=== PATIENT | male | born 1960 | race Hispanic/Latino ===

== ENCOUNTER → 2018-06-02 15:57 | Outpatient (CLI) | payer OTHER, SELFPAY ==
[2018-06-02 16:24] LABS: Add Manual Diff / Slide Review NO; Basophils Absolute Auto 0 /uL (0-100); Basophils Percent Auto 1.1 % (0-2); Eosinophils Absolute Auto 100 /uL (0-450); Eosinophils Percent Auto 2.2 % (2-4); Hematocrit 32.3 % (41-53); Hemoglobin 9.7 g/dL (13.5-17.5); Lymphocytes Absolute Auto 1500 /uL (1100-4500); Lymphocytes Percent Auto 35.1 % (25-40); Mean Corpuscular HGB Conc 30.2 % (30-36); Mean Corpuscular Hemoglobin 22.2 PG (26-34); Mean Corpuscular Volume 73.4 fL (80-100); Monocytes Absolute Auto 400 /uL (0-900); Monocytes Percent Auto 8.3 % (3-14); Neutrophils Absolute Auto 2300 /uL (1500-7000); Neutrophils Percent Auto 53.3 % (50-75); Platelet Count 499 X10^3/uL (150-400); Red Blood Cell Count 4.39 X10^6/uL (4.5-5.9); Red Cell Distribution Width 28.8 % (11.6-14.8); White Blood Cell Count 4.4 X10^3/uL (4.5-11.0)
[2018-06-02 16:43] LABS: Alanine Aminotransferase 22 IU/L (21-72); Albumin 4.7 g/dL (3.5-5.0); Albumin Globulin Ratio 1.7 (1.0-2.8); Alkaline Phosphatase 75 U/L (38-126); Aspartate Aminotransferase 20 IU/L (17-59); BUN Creatinine Ratio 22.9 (6-22); Bilirubin Total 0.3 mg/dL (0.2-1.3); Blood Urea Nitrogen 16 mg/dL (9-20); Carbon Dioxide 26 mmol/L (22-32); Chloride 103 mmol/L (98-107); Estimated Glomerular Filt Rate > 60.0 mL/min (>60); Globulin 2.7 g/dL (1.7-4.1); Glucose 87 mg/dL (70-100); HEMOLYSIS < 15 (0-50); Potassium 3.8 mmol/L (3.4-5.1); Sodium 139 mmol/L (137-145); Total Protein 7.4 g/dL (6.3-8.2)
[2018-06-02 16:58] LABS: HEMOLYSIS < 15 (0-50); Iron 246 ug/dL (49-181)
[2018-06-02 17:07] LABS: Anisocytosis 2+; Microcytosis 2+
[2018-06-02 17:08] LABS: Target Cells 1+
[2018-06-02 17:09] LABS: Percent Iron Saturation 56 % (20-50); Total Iron Binding Capacity 443 ug/dL (261-462); Transferrin 407 mg/dL (206-381)
[2018-06-02 17:19] LABS: Ferritin 76.6 ng/mL (17.9-464)
== END ==
PROVIDERS: PCP Nurse Practitioner Family; Visit Provider Internal Medicine Hematology & Oncology
DX: D50.9 Iron deficiency anemia, unspecified (principal)
CPT/HCPCS: 36415; 80053; 82728; 83540; 83550; 85025

== ENCOUNTER → 2018-08-04 15:51 | Outpatient (CLI) | payer OTHER, SELFPAY ==
[2018-08-04 16:24] LABS: Add Manual Diff / Slide Review NO; Basophils Absolute Auto 0 /uL (0-100); Eosinophils Absolute Auto 0 /uL (0-450); Eosinophils Percent Auto 0.9 % (2-4); Hematocrit 32.2 % (41-53); Hemoglobin 9.9 g/dL (13.5-17.5); Lymphocytes Absolute Auto 1500 /uL (1100-4500); Lymphocytes Percent Auto 30.4 % (25-40); Mean Corpuscular HGB Conc 30.8 % (30-36); Mean Corpuscular Hemoglobin 22.8 PG (26-34); Monocytes Absolute Auto 300 /uL (0-900); Monocytes Percent Auto 6.9 % (3-14); Neutrophils Absolute Auto 3100 /uL (1500-7000); Neutrophils Percent Auto 60.8 % (50-75); Platelet Count 432 X10^3/uL (150-400); Red Blood Cell Count 4.35 X10^6/uL (4.5-5.9); Red Cell Distribution Width 19.3 % (11.6-14.8)
[2018-08-04 16:37] LABS: Iron 23 ug/dL (49-181)
[2018-08-04 16:39] LABS: Alanine Aminotransferase 27 IU/L (21-72); Albumin 4.5 g/dL (3.5-5.0); Albumin Globulin Ratio 1.6 (1.0-2.8); Alkaline Phosphatase 82 U/L (38-126); Aspartate Aminotransferase 22 IU/L (17-59); BUN Creatinine Ratio 27.5 (6-22); Bilirubin Total 0.3 mg/dL (0.2-1.3); Blood Urea Nitrogen 22 mg/dL (9-20); Calcium 9.3 mg/dL (8.4-10.2); Carbon Dioxide 26 mmol/L (22-32); Chloride 101 mmol/L (98-107); Estimated Glomerular Filt Rate > 60.0 mL/min (>60); Globulin 2.8 g/dL (1.7-4.1); Glucose 116 mg/dL (70-100); HEMOLYSIS < 15 (0-50); Potassium 3.3 mmol/L (3.4-5.1); Sodium 138 mmol/L (137-145); Total Protein 7.3 g/dL (6.3-8.2)
[2018-08-04 17:14] LABS: Ferritin 8.1 ng/mL (17.9-464)
[2018-08-04 17:47] LABS: HEMOLYSIS < 15 (0-50); Percent Iron Saturation 5 % (20-50); Total Iron Binding Capacity 480 ug/dL (261-462); Transferrin 393 mg/dL (206-381)
== END ==
PROVIDERS: Family Provider Internal Medicine Hematology & Oncology; PCP Nurse Practitioner Family; Visit Provider Nurse Practitioner Family
DX: E61.1 Iron deficiency (principal)
CPT/HCPCS: 36415; 80053; 82728; 83540; 83550; 85025

== ENCOUNTER → 2018-12-11 08:52 | Outpatient (CLI) | payer OTHER, SELFPAY ==
--- NOTE | 2018-12-11 08:55 | DI.RAD.S_ITS ---
PROCEDURE: XR RIBS LT MIN 3V W CXR1V INDICATIONS: Fall, rib pain, trouble breathing TECHNIQUE: 2 views of the left ribs were acquired, along with a single view chest. COMPARISON: None. FINDINGS: Surgical changes and devices: None. Bones and chest wall: Mildly displaced fractures of the left fourth and fifth ribs. No suspicious bony lesions. Overlying soft tissues appear unremarkable. Lungs and pleura: No pleural effusions or pneumothorax. Lungs appear clear. Mediastinum: Mediastinal contours appear normal. Heart size is normal. IMPRESSION: Mildly displaced left fourth and fifth rib fractures Dictated by: Ashlee Mccoy M.D. on 12/11/2018 at 9:15 Approved by: Ashlee Mccoy M.D. on 12/11/2018 at 9:17
== END ==
PROVIDERS: Visit Provider Physician Assistant
DX: S22.31XA Fracture of one rib, right side, initial encounter for closed fracture (principal); S20.219A Contusion of unspecified front wall of thorax, initial encounter; S22.32XA Fracture of one rib, left side, initial encounter for closed fracture; W19.XXXA Unspecified fall, initial encounter
CPT/HCPCS: 71101

== ENCOUNTER → 2018-12-27 15:52 | Outpatient (CLI) | payer OTHER, SELFPAY ==
[2018-12-27 16:14] LABS: Add Manual Diff / Slide Review NO; Basophils Absolute Auto 100 /uL (0-100); Basophils Percent Auto 1.3 % (0-2); Eosinophils Absolute Auto 100 /uL (0-450); Eosinophils Percent Auto 1.2 % (2-4); Hematocrit 28.8 % (41-53); Hemoglobin 8.9 g/dL (13.5-17.5); Lymphocytes Absolute Auto 1100 /uL (1100-4500); Mean Corpuscular HGB Conc 30.9 % (30-36); Mean Corpuscular Hemoglobin 22.2 PG (26-34); Mean Corpuscular Volume 71.8 fL (80-100); Monocytes Absolute Auto 400 /uL (0-900); Monocytes Percent Auto 7.3 % (3-14); Neutrophils Absolute Auto 4100 /uL (1500-7000); Neutrophils Percent Auto 71.2 % (50-75); Platelet Count 428 X10^3/uL (150-400); Red Blood Cell Count 4.02 X10^6/uL (4.5-5.9); Red Cell Distribution Width 18.6 % (11.6-14.8); White Blood Cell Count 5.8 X10^3/uL (4.5-11.0)
[2018-12-27 16:45] LABS: HEMOLYSIS < 15 (0-50); Iron 19 ug/dL (49-181)
[2018-12-27 16:47] LABS: Alanine Aminotransferase 21 IU/L (21-72); Albumin 4.3 g/dL (3.5-5.0); Albumin Globulin Ratio 1.5 (1.0-2.8); Alkaline Phosphatase 88 U/L (38-126); Aspartate Aminotransferase 27 IU/L (17-59); BUN Creatinine Ratio 16.7 (6-22); Bilirubin Total 0.5 mg/dL (0.2-1.3); Blood Urea Nitrogen 20 mg/dL (9-20); Calcium 9.7 mg/dL (8.4-10.2); Carbon Dioxide 25 mmol/L (22-32); Chloride 103 mmol/L (98-107); Estimated Glomerular Filt Rate > 60.0 mL/min (>60); Globulin 2.9 g/dL (1.7-4.1); Glucose 125 mg/dL (70-100); HEMOLYSIS < 15 (0-50); Potassium 4.3 mmol/L (3.4-5.1); Sodium 138 mmol/L (137-145); Total Protein 7.2 g/dL (6.3-8.2)
[2018-12-27 16:55] LABS: Percent Iron Saturation 4 % (20-50); Total Iron Binding Capacity 485 ug/dL (261-462); Transferrin 394 mg/dL (206-381)
== END ==
PROVIDERS: Visit Provider Internal Medicine Hematology & Oncology
DX: D50.9 Iron deficiency anemia, unspecified (principal)
CPT/HCPCS: 36415; 80053; 82728; 83540; 83550; 85025

== ENCOUNTER 2019-03-06 07:23 | Day surgery (SDC) | payer OTHER, SELFPAY ==
--- NOTE | 2019-03-06 | PATH_ITS ---
[facility] Accession Number: [id number] . 01 Material submitted: . colon - COLON POLYP AT 20 CM . 02 Diagnosis: Colon at 20 cm, Polyp: Tubular adenoma. MRV 03/07/2019 1001 Local . 02 Electronically signed: . Fito Wolff MD, PhD, Pathologist NPI- [id number] . 01 Gross description: . COLON POLYP AT 20 CM: Received in formalin is 1 fragment(s) of castro, soft tissue measuring 0.3 x 0.3 x 0.3 cm submitted entirely in 1 cassette(s) /DMC 03/06/2019 1938 Local . 02 Pathologist provided ICD-10: D12.6 . 02 CPT . 020612 Performed at: 01 [facility] [address] [id number] MD Hung Maravilla MD Phone: [phone] Performed at: 02 [facility] [address] [place], [place] [id number] MD Wendi Skaggs MD Phone: [phone]
[2019-03-06 07:45] VITALS: BP 192/104; PULSE 58; RESP 15; TEMP 36.7; O2SAT 98; BMI 26.1
--- NOTE | 2019-03-06 08:46 | PM.HP.1 ---
History of Present Illness History of Present Illness Date Patient Seen: 03/06/19 Time Patient Seen: 08:46 Chief complaint: [id number] Narrative: Patient presents for colorectal screening. They had a prior colonoscopy 5 yeras ago that was notable for an adenomatous polyp. On further history denies any recent gastrointestinal symptoms. No nausea, vomiting, abdominal pain, loss of appetite, unexplained weight loss, change in bowel habits, diarrhea, constipation, melena, hematochezia, or bright red blood per rectum. No family history of colon cancer. He has had a prior sigmoid resection for diverticulitis. Patient History Medical History Acid reflux (Acute) Arthritis (Acute) Asthma (Acute) Chronic anemia (Acute) COPD (chronic obstructive pulmonary disease) (Acute) Cough (Acute) Depression (Acute) Diverticulitis (Acute) Diverticulosis (Acute) Elevated cholesterol (Acute) Hypertension (Acute) Iron deficiency (Acute) Urinary frequency (Acute) Surgical History History of appendectomy (Acute) History of arthroscopic surgery of shoulder (Acute) History of colon resection (Acute) History of colonoscopy (Acute) Family & Social History Family History Brother Diabetes mellitus Social History: household members none Tobacco & Substance use: Smoking Status Former smoker alcohol intake current Meds Home Medications and Allergies Home Medications Medication Instructions Recorded Confirmed Type lisinopril-hydrochlorothiazide 1 tab PO BID #0 07/04/17 03/06/19 History pramipexole [Mirapex] 0.25 mg PO QPM PRN #0 07/04/17 03/06/19 History ferrous sulfate 1 tab PO Q OTHER DAY 05/11/18 02/12/19 History sildenafil (antihypertensive) 20 mg PO PRN PRN 05/11/18 03/06/19 History quetiapine [Seroquel] 25 mg PO PRN PRN 09/21/18 03/06/19 History acetaminophen 650 mg PO Q4-6H PRN 03/06/19 03/06/19 History Allergies Allergy/AdvReac Type Severity Reaction Status Date / Time morphine AdvReac Mild N&V Verified 03/06/19 08:09 Review of Systems Review of Systems ROS Unobtainable: All systems reviewed & are unremarkable except as noted in HPI and below Exam Vital Signs (past 8 hours): - 03/06/19 07:45 Temperature 98.0 F Pulse Rate 58 L Respiratory Rate 15 Blood Pressure 192/104 H Pulse Oximetry 98 Oxygen Delivery Method Room Air Narrative Exam Narrative: General-no acute distress, well nourished HEENT-moist mucous membranes, no scleral icterus Neck-supple, no lymphadenopathy Chest- non labored respirations, clear to auscultation bilaterally Cardiac-regular rate no peripheral edema Abdomen-soft, nontender, non distended Extremities-warm, well perfused Neurological-alert and oriented, no focal deficits Assessment & Plan Assessment and plan (1) Screening for colon cancer: Current visit: Yes Status: Acute Assessment & Plan narrative: The patient requires colorectal screening and colonoscopy is recommended. Technical details were discussed. Risks, benefits, alternatives explained. Risks including but not limited to myocardial infarction, aspiration, bleeding, pain, missed lesion, incomplete examination, need for further radiographic studies, colonic perforation, and need for major abdominal surgery were discussed. All questions were answered to their satisfaction, and they are in agreement with this plan.
[2019-03-06] MEDS: fentaNYL 250 MCG/5 ML INJ IV (09:18)
--- NOTE | 2019-03-06 09:18 | PM.OP.ENDO ---
Operative Date/Time/Diagnoses Date of procedure: 03/06/19 Time of procedure: 09:18 Pre-op diagnosis: Anemia History of tubular adenoma Post-op diagnosis: same Procedure & Clinicians Study performed: Colonoscopy Same procedure as scheduled: Yes Indications: 58-year-old man with new anemia and history of tubular adenoma, last colonoscopy 5 years ago presents for diagnostic and screening colonoscopy Surgeon: Humberto Velez Procedure Notes SCOAP/Timeout: Performed Procedure in detail: Patient placed in left lateral decubitus position. Time out was performed. Procedural sedation was administered with Versed and Fentanyl. A rectal exam demonstrated no external hemorrhoids no internal masses. Colonoscopy scope was placed into the rectum and advanced through the colon to the cecum. The ileocecal valve was identified. The scope was then slowly withdrawn examining colon thoroughly in all directions. The colonoscopy was notable for the following 1. Bell diverticulosis 2. 1 cm adenoma in the rectum 20 cm from anal verge resected with cold snare. 3. Grade 1 internal hemorrhoids. Scope withdrawal time: 15 Sedation minutes: 25 Findings: polyp Specimen(s): other (polyp from 20 cm from verge) Complications: none Impression: Polyp Post-procedure Recommendations: Colonscopy in 5 years Disposition: same day surgery
[2019-03-06] MEDS: MIDAZOLAM 5 MG/5 ML VIAL IV (09:19)
[2019-03-06 09:22] VITALS: BP 140/89; PULSE 78; RESP 18; TEMP 36.8; O2SAT 98
[2019-03-06 09:31] VITALS: BP 154/94; PULSE 73; RESP 17; O2SAT 97
--- NOTE | 2019-03-06 09:36 | SUR.PHASEI ---
pt to PACU awake, oriented. HOB elevated, juice given. Requested that lab draw tests as ordered by his PCP while he is here -- done. Report given. Stable and oriented
[2019-03-06 09:53] VITALS: BP 167/97; PULSE 55; RESP 16; TEMP 36.6; O2SAT 98
[2019-03-06 09:55] LABS: Add Manual Diff / Slide Review NO; Basophils Absolute Auto 0 /uL (0-100); Basophils Percent Auto 1.2 % (0-2); Eosinophils Absolute Auto 100 /uL (0-450); Eosinophils Percent Auto 2.4 % (2-4); Hematocrit 34.1 % (41-53); Hemoglobin 10.9 g/dL (13.5-17.5); Lymphocytes Absolute Auto 1000 /uL (1100-4500); Lymphocytes Percent Auto 29.7 % (25-40); Mean Corpuscular HGB Conc 31.9 % (30-36); Mean Corpuscular Hemoglobin 24.7 PG (26-34); Mean Corpuscular Volume 77.5 fL (80-100); Monocytes Absolute Auto 300 /uL (0-900); Monocytes Percent Auto 9.9 % (3-14); Neutrophils Absolute Auto 1900 /uL (1500-7000); Neutrophils Percent Auto 56.8 % (50-75); Platelet Count 253 X10^3/uL (150-400); Red Cell Distribution Width 22.4 % (11.6-14.8); White Blood Cell Count 3.4 X10^3/uL (4.5-11.0)
[2019-03-06 10:13] LABS: Anisocytosis 2+; Poikilocytosis 1+
[2019-03-06 10:18] LABS: HEMOLYSIS < 15 (0-50); Iron 28 ug/dL (49-181)
[2019-03-06 10:19] LABS: Alanine Aminotransferase 60 IU/L (21-72); Albumin 3.5 g/dL (3.5-5.0); Albumin Globulin Ratio 1.3 (1.0-2.8); Alkaline Phosphatase 69 U/L (38-126); Aspartate Aminotransferase 64 IU/L (17-59); BUN Creatinine Ratio 12.5 (6-22); Bilirubin Total 0.6 mg/dL (0.2-1.3); Blood Urea Nitrogen 10 mg/dL (9-20); Calcium 9.3 mg/dL (8.4-10.2); Carbon Dioxide 29 mmol/L (22-32); Chloride 98 mmol/L (98-107); Estimated Glomerular Filt Rate > 60.0 mL/min (>60); Globulin 2.6 g/dL (1.7-4.1); Glucose 146 mg/dL (70-100); HEMOLYSIS < 15 (0-50); Potassium 4.2 mmol/L (3.4-5.1); Sodium 134 mmol/L (137-145); Total Protein 6.1 g/dL (6.3-8.2)
[2019-03-06 10:29] LABS: Percent Iron Saturation 7 % (20-50); Total Iron Binding Capacity 375 ug/dL (261-462); Transferrin 314 mg/dL (206-381)
[2019-03-06 10:57] LABS: Ferritin 27.5 ng/mL (17.9-464)
== END 2019-03-06 09:58 | disposition home or self-care (01) ==
PROVIDERS: Internal Medicine Hematology & Oncology; Visit Provider Surgery
PROC: 0DJD8ZZ Inspection of Lower Intestinal Tract, Via Natural or Artificial Opening Endoscopic (ICD-10-PCS; CPT 45378; principal; 2019-03-06 09:15)
DX: D50.9 Iron deficiency anemia, unspecified (principal); K64.0 First degree hemorrhoids; K57.30 Diverticulosis of large intestine without perforation or abscess without bleeding; D12.6 Benign neoplasm of colon, unspecified
CPT/HCPCS: 45380; 36415; 80053; 82728; 83540; 83550; 85025; 99152; J2250; J3010

== ENCOUNTER 2019-07-26 16:30 | Emergency (ER) | payer OTHER, MEDICAID, SELFPAY ==
[2019-07-26 16:38] VITALS: BP 162/77; PULSE 83; RESP 14; TEMP 36.8; O2SAT 98; BMI 27.8
--- NOTE | 2019-07-26 16:50 | DI.US.S_ITS ---
PROCEDURE: US PERIPH VENOUS UP EXTREM LT INDICATIONS: PAIN, SWELLING L ARM. SENT FROM ONC TO R/O DVT IN LUE TECHNIQUE: Real-time imaging, as well as color and pulse Doppler interrogation, was performed of the left upper extremity deep veins from the inferior neck to the antecubital fossa. COMPARISON: None. FINDINGS: The internal jugular vein, visualized portions of the subclavian vein, axillary, and brachial veins are free of intraluminal thrombus. Where physically possible, the veins are normally compressible. Color and pulse Doppler demonstrate normal intraluminal flow, with expected phasicity and pulsatility. Additional scanning of the cephalic and basilic veins of the superficial system demonstrate thrombus within the cephalic vein as well as the basilic vein. IMPRESSION: 1. No deep venous thrombosis. 2. Thrombosis within the superficial system of the cephalic and basilic veins are noted. Dictated by: Claire Scott M.D. on 07/26/2019 at 17:47 Approved by: Claire Scott M.D. on 07/26/2019 at 17:48
--- NOTE | 2019-07-26 17:25 | PC.NURSE ---
pt was at onc clinic receiving iron infusion. in the process of being worked up with a blood cancer states he has received 6+ units of blood over the last few weeks as well as iron infusion. Dr Jimenez is oncologist. appears well. in good color. states L AC has hard vein that has been getting progressively harder over the last few days. denies tenderness. denies tingling or numbness in extremity. skin PWD. US obtained. Awaiting further orders.
--- NOTE | 2019-07-26 18:44 | ED.EXTPRO ---
HPI - Extremity Problem General Chief complaint: Extremity Problem,Nontraumatic Stated complaint: blood clot - sent from oncology Time Seen by Provider: 07/26/19 18:36 Source: patient Mode of arrival: Ambulatory Limitations: no limitations History of Present Illness HPI Narrative: 58-year-old gentleman with a history of hypertension, COPD , asthma, diverticulosis with severe iron deficiency anemia requiring blood transfusions as well as iron transfusions. Presented for a follow-up with his oncologist today and noted prominent fullness in the superficial brachiocephalic vessel on the left side and was sent to the emergency department for further evaluation to see if he had a upper extremity DVT. He notes that the area has been somewhat tender but not swollen, not red and has been full for approximately a month. Related Data Home Medications Medication Instructions Recorded Confirmed lisinopril-hydrochlorothiazide 1 tab PO BID #0 07/04/17 03/15/19 pramipexole [Mirapex] 0.25 mg PO QPM PRN #0 07/04/17 03/15/19 sildenafil (pulm.hypertension) 20 mg PO PRN PRN 05/11/18 03/15/19 quetiapine [Seroquel] 25 mg PO PRN PRN 09/21/18 03/15/19 acetaminophen 650 mg PO Q4-6H PRN 03/06/19 03/15/19 Allergies Allergy/AdvReac Type Severity Reaction Status Date / Time morphine AdvReac Mild N&V Verified 07/26/19 16:41 Review of Systems Review of Systems Narrative: No fever, cough, cold, chills, abdominal pain, nausea, dyspnea, lower extremity edema, rectal bleeding, diarrhea Patient History Medical History Acid reflux (Acute) Arthritis (Acute) Asthma (Acute) Chronic anemia (Acute) COPD (chronic obstructive pulmonary disease) (Acute) Cough (Acute) Depression (Acute) Diverticulitis (Acute) Diverticulosis (Acute) Elevated cholesterol (Acute) Hypertension (Acute) Iron deficiency (Acute) Urinary frequency (Acute) Surgical History History of appendectomy (Acute) History of arthroscopic surgery of shoulder (Acute) History of colon resection (Acute) History of colonoscopy (Acute) Family History Brother Diabetes mellitus Social History household members: none current occupational exposures/hazards: Yes Smoking Status: Former smoker alcohol intake: current (Gin. daily before going to bed) substance use type: former substance user (cocaine in 1979) Smoking Status: Former smoker alcohol intake frequency: holidays/special occasions only Substance Use Type: does not use Exam Narrative Exam Narrative: General: Alert appropriate in no acute distress Respiratory: Able to speak in full sentences, no obvious respiratory distress Skin: No obvious rashes, warm and dry Neurologic: Grossly intact no obvious asymmetries or abnormalities Psych, appropriate insight and affect, cooperative Upper extremity: Firmness in approximately 5 cm of the brachiocephalic and 3 cm at the cephalic veins starting at the antecubital fossa. Nontender, non erythematous, no significant forearm edema and neurovascularly intact Initial Vital Signs Initial Vital Signs: Vital Signs Temperature 98.3 F 07/26/19 16:38 Pulse Rate 83 07/26/19 16:38 Respiratory Rate 14 07/26/19 16:38 Blood Pressure 162/77 H 07/26/19 16:38 Pulse Oximetry 98 07/26/19 16:38 Course Orders Ordered: ED Orders 07/26/19 16:50 [facility] venous up extrem lt Stat Vital Signs Vital signs: Vital Signs - 8 hr 07/26/19 16:38 07/26/19 19:03 Temperature 98.3 F Pulse Rate 83 86 Respiratory Rate 14 Blood Pressure 162/77 H 158/78 H Pulse Oximetry 98 99 MDM - Extremity (Nontraumatic) Imaging Data Upper extremity ultrasound: Radiologist's Impression: IMPRESSION: 1. No deep venous thrombosis. 2. Thrombosis within the superficial system of the cephalic and basilic veins are noted. Dictated by: Claire Scott M.D. on 07/26/2019 at 17:47 MDM Narrative Medical decision making narrative: Superficial thrombophlebitis without evidence of DVT. Supportive care, instructions given, safe for home discharge Discharge Plan Departure Patient Disposition: Home Clinical Impression: Superficial thrombophlebitis Qualifiers: Superficial thrombophlebitis-Involved body area: upper extremity Laterality: left Qualified Code(s): I80.8 - Phlebitis and thrombophlebitis of other sites Discharge Date/Time: 07/26/19 19:04 Instructions: DI for Superficial Thrombophlebitis Activity Restrictions/Additional Instructions: There is a blood clot but it is in the superficial blood vessels of your arm. It does not connect or going to the deeper blood vessels. That means that it is tender can cause some swelling and is annoying but is not life-threatening. This is not the type of blood clot where you will need anticoagulation. Using heat to the area, keeping the arm elevated, using 400 mg of ibuprofen (2 udin-npp-efkrwda pills) and 1 Tylenol every 6 hours can be very helpful in controlling pain. Thank you for coming in today. I hope your arm feels better. Prescriptions: No Action lisinopril-hydrochlorothiazide 20 MG/12.5 MG tablet 1 tab PO BID Qty: 0 RF: 0 pramipexole [Mirapex] 0.25 MG tablet 0.25 mg PO QPM PRN (Reason: RLS) Qty: 0 RF: 0 sildenafil (pulm.hypertension) 20 mg Tablet 20 mg PO PRN PRN (Reason: Sexual Activity) RF: 0 quetiapine [Seroquel] 25 mg Tablet 25 mg PO PRN PRN (Reason: Insomnia) RF: 0 acetaminophen 325 mg Tablet 650 mg PO Q4-6H PRN (Reason: Pain) RF: 0
[2019-07-26 19:03] VITALS: BP 158/78; PULSE 86; O2SAT 99
== END 2019-07-26 19:04 | disposition home or self-care (01) ==
PROVIDERS: Emergency Provider Emergency Medicine; Referring Provider Internal Medicine Hematology & Oncology
DX: I80.8 Phlebitis and thrombophlebitis of other sites (principal); I10 Essential (primary) hypertension; J44.9 Chronic obstructive pulmonary disease, unspecified; K57.90 Diverticulosis of intestine, part unspecified, without perforation or abscess without bleeding; D64.9 Anemia, unspecified
CPT/HCPCS: 93971; 99283

== ENCOUNTER → 2019-12-24 10:51 | Outpatient (CLI) | payer OTHER, MEDICAID, SELFPAY ==
--- NOTE | 2019-12-24 10:53 | DI.US.S_ITS ---
PROCEDURE: US SOFT TISSUE HEAD AND NECK INDICATIONS: LYMPH NODE SWELLING TECHNIQUE: Real-time scanning was performed of the neck region of interest, with image documentation. COMPARISON: None. FINDINGS: Scanning is performed at the areas of palpable abnormality within both sides of the neck. On the right-side, nonenlarged lymph nodes are seen, with the largest measuring 8 x 3 x 6 mm. Normal appearing lymph nodes are seen on the left side of the neck. At the specific areas of clinical concern, normal fatty tissue is seen, without masses. No abnormal vascularity is seen. IMPRESSION: No masses or enlarged lymph nodes are seen. Dictated by: Wilner Sewell M.D. on 12/24/2019 at 11:29 Approved by: Wilner Sewell M.D. on 12/24/2019 at 11:30
== END ==
PROVIDERS: Referring Provider Physician Assistant; Visit Provider Physician Assistant
DX: R59.0 Localized enlarged lymph nodes (principal)
CPT/HCPCS: 76536

== ENCOUNTER → 2020-01-28 14:51 | Outpatient (CLI) | payer OTHER, MEDICAID, SELFPAY ==
[2020-01-30 17:20] LABS: COVID19 Sendout Not Detected (Not Detect)
== END ==
PROVIDERS: Visit Provider Nurse Practitioner
DX: Z11.59 Encounter for screening for other viral diseases (principal)
CPT/HCPCS: 87635

== ENCOUNTER 2020-01-31 12:49 | Day surgery (SDC) | payer OTHER, MEDICAID, SELFPAY ==
--- NOTE | 2020-01-31 | PATH_ITS ---
[facility] Accession Number: [id number] . 01 Material submitted: . colon - TRANSVERSE COLON POLYP . 02 Diagnosis: Transverse Colon, Polyp: Colonic mucosa with focal mucosal hyperplasia. Negative for dysplasia or malignancy. Additional step sections examined. V 02/05/2020 1351 Local . 02 Electronically signed: . Fito Wolff MD, PhD, Pathologist NPI- [id number] . 01 Gross description: . Received in formalin, labeled transverse colon polyp, and consists of a 0.3 x 0.3 x 0.2 cm castro fragment of soft tissue which is entirely submitted in cassette A1. ([id number]) /MRV 02/01/2020 1317 Local . 02 Pathologist provided ICD-10: K63.5 . 02 CPT . 460431 Performed at: 01 [facility] [address] [id number] MD Hung Maravilla MD Phone: [phone] Performed at: 02 [facility] [address] [place], [place] [id number] MD Wendi Skaggs MD Phone: [phone]
[2020-01-31 13:04] VITALS: BP 147/85; PULSE 90; RESP 18; TEMP 36.2; O2SAT 100; BMI 28.6
[2020-01-31] MEDS: LACTATED RINGERS 1,000 ML 200 ML IV (13:27)
--- NOTE | 2020-01-31 15:11 | P.HP_ITS ---
History of Present Illness History of Present Illness Date Patient Seen: 01/31/20 Time Patient Seen: 15:12 Chief complaint: SDC Narrative: This is a 59-year-old man who was referred for a colonoscopy secondary to iron deficiency anemia. He had a colonoscopy 1 year ago that was negative and an upper endoscopy at OSH several months ago that was negative as well. No personal or family history of colon cancer. On further history denies any recent gastrointestinal symptoms. No nausea, vomiting, abdominal pain, loss of appetite, unexplained weight loss, change in bowel habits, diarrhea, constipation, melena, hematochezia, or bright red blood per rectum. Patient History Medical History Acid reflux (Acute) Arthritis (Acute) Asthma (Acute) Chronic anemia (Acute) COPD (chronic obstructive pulmonary disease) (Acute) Cough (Acute) Depression (Acute) Diverticulitis (Acute) Diverticulosis (Acute) Elevated cholesterol (Acute) Hypertension (Acute) Iron deficiency (Acute) Urinary frequency (Acute) Surgical History History of appendectomy (Acute) History of arthroscopic surgery of shoulder (Acute) History of colon resection (Acute) History of colonoscopy (Acute) Family & Social History Family History Brother Diabetes mellitus Social History: household members none Tobacco & Substance use: Smoking Status Former smoker alcohol intake current alcohol intake frequency a few times a week Substance Use Type does not use Meds Home Medications and Allergies Home Medications Medication Instructions Recorded Confirmed Type lisinopril-hydrochlorothiazide 1 tab PO BID #0 07/04/17 01/31/20 History sildenafil (pulm.hypertension) 20 mg PO PRN PRN 05/11/18 01/31/20 History albuterol sulfate 1 inh INHALATION QID PRN 01/31/20 01/31/20 History diphenhydramine HCl [Unisom 25 mg PO BEDTIME PRN 01/31/20 01/31/20 History SleepMelts] Allergies Allergy/AdvReac Type Severity Reaction Status Date / Time morphine AdvReac Mild N&V Verified 01/28/20 15:01 Review of Systems Review of Systems Narrative: A 10 point review of systems is negative except as noted in the HPI Exam Vital Signs (past 8 hours): - 01/31/20 13:04 Temperature 97.1 F L Pulse Rate 90 Respiratory Rate 18 Blood Pressure 147/85 H Pulse Oximetry 100 Oxygen Delivery Method Room Air Narrative Exam Narrative: General-no acute distress, well nourished HEENT-moist mucous membranes, no scleral icterus Neck-supple, no lymphadenopathy Chest- non labored respirations, clear to auscultation bilaterally Cardiac-regular rate no peripheral edema Abdomen-soft, nontender, non distended Extremities-warm, well perfused Neurological-alert and oriented, no focal deficits Assessment & Plan Assessment and plan (1) Screening for colon cancer: Status: Acute Assessment & Plan narrative: The patient requires colorectal screening for unexplained anemia and colonoscopy is recommended. Technical details were discussed. Risks, benefits, alternatives explained. Risks including but not limited to myocardial infarction, aspiration, bleeding, pain, missed lesion, incomplete examination, need for further radiographic studies, colonic per foration, and need for major abdominal surgery were discussed. All questions were answered to their satisfaction, and they are in agreement with this plan.
[2020-01-31] MEDS: fentaNYL 250 MCG/5 ML INJ IV (15:32)
[2020-01-31] MEDS: MIDAZOLAM 5 MG/5 ML VIAL IV (15:33)
--- NOTE | 2020-01-31 15:40 | PM.OP.ENDO ---
Operative Date/Time/Diagnoses Date of procedure: 01/31/20 Time of procedure: 15:41 Pre-op diagnosis: Anemia Post-op diagnosis: same Procedure & Clinicians Study performed: Colonoscopy Same procedure as scheduled: Yes Indications: 59-year-old man with anemia of known origin here for colonoscopy. Surgeon: Humberto Velez Procedure Notes SCOAP/Timeout: Performed Procedure in detail: Patient placed in left lateral recumbent position. Time out was performed. Procedural sedation was administered with Versed and Fentanyl. Examination began with a thorough inspection of the perianal area there was no evidence of fissures, fistulae, external hemorrhoids or cutaneous malignancy. The colonoscopy scope was then placed into the rectum the the lumen was insufflated with air. The scope was carefully advanced forward. In the ascending colon there was a coloenteric anastomosis consistent with his history of right hemicolectomy. The scope was then slowly withdrawn examining colon thoroughly in all directions. In the rectum the rectal columns were identified and retroflexion of the scope was performed for inspection of the distal rectum and anal canal. The colonoscopy was notable for the followin. Quality of the preparation-fair 2. Less than 1 cm benign-appearing polyp in the transverse colon removed with biopsy forceps. Hemostasis observed. 3. Bell diverticulosis Scope withdrawal time: 6 Sedation minutes: 20 Findings: polyp Specimen(s): other (Transverse polyp) Complications: none Impression: Polyp Post-procedure Recommendations: Colonscopy in 5 years and Other recommendation Plan for aftercare: Will refer to Gastroenterology for capsule endoscopy Disposition: same day surgery
[2020-01-31 15:45] VITALS: BP 132/76; PULSE 79; RESP 11; TEMP 36.6; O2SAT 98
[2020-01-31 15:49] VITALS: BP 115/68; PULSE 73; RESP 11; O2SAT 97
[2020-01-31 16:00] VITALS: BP 125/87; PULSE 92; RESP 15; O2SAT 97
[2020-01-31 16:06] VITALS: BP 148/92; PULSE 76; RESP 17; TEMP 36.6; O2SAT 98
[2020-01-31 16:24] VITALS: BP 128/79; PULSE 71; RESP 16; TEMP 36.5; O2SAT 99
--- NOTE | 2020-01-31 16:29 | SUR.PHASEII ---
Pt up and ambulating gait steady, up to br dressed and voiding well. All dc instructions given and pt verbalizes understanding.
--- NOTE | 2020-01-31 16:38 | SUR.PHASEII ---
Pt dcd in stable condition via wc with no c/o
== END 2020-01-31 16:38 | disposition home or self-care (01) ==
PROVIDERS: Referring Provider Surgery; Visit Provider Surgery
PROC: 0DJD8ZZ Inspection of Lower Intestinal Tract, Via Natural or Artificial Opening Endoscopic (ICD-10-PCS; CPT 45378; principal; 2020-01-31 14:30)
DX: D50.9 Iron deficiency anemia, unspecified (principal); J44.9 Chronic obstructive pulmonary disease, unspecified; E78.00 Pure hypercholesterolemia, unspecified; I10 Essential (primary) hypertension; D12.3 Benign neoplasm of transverse colon
CPT/HCPCS: 45380; 99152; J2250; J3010

== ENCOUNTER → 2020-09-04 11:04 | Outpatient (CLI) | payer OTHER, MEDICAID, SELFPAY ==
[2020-09-04] MEDS: COVID-19 VACC #1, MRNA(MOD) 100 MCG/0.5 ML VIAL IM (11:11)
== END ==
PROVIDERS: Visit Provider Internal Medicine
DX: Z23 Encounter for immunization (principal)
CPT/HCPCS: 0011A; 91301

== ENCOUNTER → 2020-10-02 11:03 | Outpatient (CLI) | payer OTHER, MEDICAID, SELFPAY ==
[2020-10-02] MEDS: COVID-19 VACC #2, MRNA(MOD) 100 MCG/0.5 ML VIAL IM (11:09)
== END ==
PROVIDERS: Visit Provider Internal Medicine
DX: Z23 Encounter for immunization (principal)
CPT/HCPCS: 0012A; 91301

== ENCOUNTER → 2021-12-24 15:10 | Outpatient (CLI) | payer MEDICARE, MEDICAID, SELFPAY ==
[2021-12-25 08:33] LABS: PSA Free % 18.9 % (.); PSA, Total 6.2 ng/mL (0.0-4.0)
== END ==
PROVIDERS: PCP Internal Medicine; Referring Provider Internal Medicine; Visit Provider Internal Medicine
DX: R97.20 Elevated prostate specific antigen [PSA] (principal)
CPT/HCPCS: 36415; 84153; 84154

== ENCOUNTER → 2022-04-28 12:53 | Outpatient (CLI) | payer MEDICARE, MEDICAID, SELFPAY ==
[2022-04-28 13:07] LABS: Add Manual Diff / Slide Review NO; Basophils Absolute Auto 100 /uL (0-100); Basophils Percent Auto 1.3 % (0-2); Eosinophils Absolute Auto 100 /uL (0-450); Eosinophils Percent Auto 1.4 % (2-4); Hematocrit 36.8 % (41-53); Lymphocytes Absolute Auto 1200 /uL (1100-4500); Lymphocytes Percent Auto 26.1 % (25-40); Mean Corpuscular HGB Conc 32.7 % (30-36); Mean Corpuscular Volume 79.5 fL (80-100); Monocytes Absolute Auto 300 /uL (0-900); Monocytes Percent Auto 7.1 % (3-14); Neutrophils Absolute Auto 3000 /uL (1500-7000); Neutrophils Percent Auto 64.1 % (50-75); Platelet Count 507 X10^3/uL (150-400); Red Blood Cell Count 4.63 X10^6/uL (4.5-5.9); Red Cell Distribution Width 17.9 % (11.6-14.8); White Blood Cell Count 4.7 X10^3/uL (4.5-11.0)
[2022-04-28 13:22] LABS: Alanine Aminotransferase 22 IU/L (<50); Albumin 4.5 g/dL (3.5-5.0); Albumin Globulin Ratio 1.3 (1.0-2.8); Alkaline Phosphatase 84 U/L (38-126); Aspartate Aminotransferase 27 IU/L (17-59); BUN Creatinine Ratio 15.7 (6-22); Bilirubin Total 0.4 mg/dL (0.2-1.3); Blood Urea Nitrogen 13 mg/dL (9-20); Calcium 9.5 mg/dL (8.4-10.2); Carbon Dioxide 27 mmol/L (22-32); Chloride 97 mmol/L (98-107); Estimated Glomerular Filt Rate > 60 mL/min (>60); Globulin 3.5 g/dL (1.7-4.1); Glucose 140 mg/dL (80-110); HEMOLYSIS 34 (0-50); Potassium 4.2 mmol/L (3.4-5.1); Sodium 134 mmol/L (137-145)
[2022-04-28 13:57] LABS: Ferritin 13 ng/mL (18-464)
[2022-04-28 14:13] LABS: HEMOLYSIS < 15 (0-50); Iron 22 ug/dL (49-181)
[2022-04-28 14:28] LABS: Percent Iron Saturation 5 % (20-50); Total Iron Binding Capacity 455 ug/dL (261-462); Transferrin 372 mg/dL (206-381)
[2022-04-28 14:54] LABS: Prostate Specific Antigen 5.99 ng/mL (0.10-4.00)
== END ==
PROVIDERS: Internal Medicine Hematology & Oncology; PCP Internal Medicine; Referring Provider Internal Medicine; Visit Provider Internal Medicine
DX: D50.9 Iron deficiency anemia, unspecified (principal); R97.20 Elevated prostate specific antigen [PSA]
CPT/HCPCS: 36415; 80053; 82728; 83540; 83550; 84153; 85025

== ENCOUNTER 2022-06-15 13:02 | Day surgery (SDC) | payer MEDICARE, MEDICAID, SELFPAY ==
--- NOTE | 2022-06-15 | PATH_ITS ---
[facility] Accession Number: [id number] No. of containers..02 Tissue . 01 Material submitted: . PART A: duodenum - DUODENUM PART B: sigmoid colon - SIGMOID POLYP . 01 Diagnosis: A. Duodenum, Biopsy: Features consistent with peptic duodenitis, including erosion, active inflammation, and patchy gastric surface foveolar metaplasia. Negative for intraepithelial lymphocytosis. Negative for dysplasia and malignancy. . B. Sigmoid Colon, Polyp, Biopsy: Hyperplastic polyp. MRV 06/21/2022 1347 Local . 01 Electronically signed: . Wendi Skaggs MD, Pathologist NPI- [id number] . 01 Gross description: . Part A: DUODENUM: Received in formalin are 2 fragment(s) of castro, soft tissue measuring 0.3 x 0.1 x 0.1 cm to 0.3 x 0.1 x 0.1 cm submitted entirely in 1 cassette(s) Part B: SIGMOID POLYP: Received in formalin is 1 fragment(s) of castro, soft tissue measuring 0.3 x 0.2 x 0.2 cm submitted entirely in 1 cassette(s) /CPE 06/16/2022 0857 Local . 01 Pathologist provided ICD-10: D50.9, K63.89, K63.5 . 01 CPT . 334076, 349299 Specimen Comment: A courtesy copy of this report has been sent to [phone] Performed at: 01 [facility] [address] [place] [id number] MD Hung Maravilla MD Phone: [phone]
[2022-06-15] MEDS: LACTATED RINGERS 1,000 ML 200 ML IV (13:48)
[2022-06-15 13:59] VITALS: BP 148/93; PULSE 69; RESP 16; TEMP 36.3; O2SAT 98; BMI 27.3
--- NOTE | 2022-06-15 15:00 | PM.HP.1 ---
History of Present Illness History of Present Illness Date Patient Seen: 06/15/22 Chief complaint: EGD/Colonoscopy Narrative: 61-year-old man with history of anemia here for diagnostic esophagoduodenoscopy and colonoscopy. He is had multiple prior upper and lower endoscopies which have not demonstrated any evidence of bleeding. No abdominal pain nausea vomiting unintentional weight loss. No suni blood per rectum occasional scant blood which she attributes to hemorrhoidal disease. Patient History Medical History (Updated 02/22/22 @ 15:58 by Sudhir Maya MD) Acid reflux Arthritis Asthma Bipolar 1 disorder Chronic anemia Chronic back pain COPD (chronic obstructive pulmonary disease) Cough Depression Diverticulitis Diverticulosis Elevated cholesterol Elevated PSA History of adenomatous polyp of colon Hypertension Iron deficiency PTSD (post-traumatic stress disorder) Urinary frequency Surgical History History of appendectomy History of arthroscopic surgery of shoulder History of colon resection History of colonoscopy Family & Social History Family History Brother Diabetes mellitus Social History: household members none Tobacco & Substance use: Smoking Status Former smoker alcohol intake never alcohol intake frequency a few times a week Substance Use Type does not use Meds Home Medications and Allergies Home Medications Medication Instructions Recorded Confirmed Type sildenafil (pulm.hypertension) 20 20 - 40 mg PO DAILY PRN Sexual 11/06/20 06/15/22 Rx mg tablet Activity #90 tabs lisinopril 20 1 tab PO DAILY #90 tabs 09/28/21 06/15/22 Rx mg-hydrochlorothiazide 12.5 mg tablet amlodipine 10 mg tablet See Rx Instructions .Route 10/02/21 06/15/22 Rx .COMPLEX #90 tabs trazodone 50 mg tablet 50 - 100 mg PO BEDTIME #60 tabs 11/02/21 06/15/22 Rx albuterol sulfate 90 mcg/actuation 1 inh inhalation QID PRN Wheezing 11/26/21 06/15/22 Rx aerosol inhaler #18 grams Allergies Allergy/AdvReac Type Severity Reaction Status Date / Time morphine AdvReac Mild Stomach Verified 06/15/22 13:53 ache Exam Vital Signs (past 8 hours): - 06/15/22 13:59 Temperature 97.3 F L Pulse Rate 69 Respiratory Rate 16 Blood Pressure 148/93 H Pulse Oximetry 98 Oxygen Delivery Method Room Air Oxygen Delivery Method Room Air Narrative Exam Narrative: General adult man alert oriented no acute distress Assessment & Plan Assessment and plan (1) Iron deficiency anemia: Status: Chronic Assessment & Plan narrative: 61-year-old man with chronic anemia here for diagnostic esophagoduodenoscopy and colonoscopy. Overview of these procedures were discussed patient. Operative risks including bleeding, missed diagnosis, intestinal injury were discussed. Questions have been answered he is in agreement with this plan. Time Spent With Patient Critical Care time: I spent a total of [] minutes of critical care time on this patient's care today; this time is exclusive of procedural time.
--- NOTE | 2022-06-15 15:10 | PM.OP.EC ---
Operative Date/Time/Diagnoses Date of procedure: 06/15/22 Time of procedure: 15:10 Pre-op diagnosis: Anemia Post-op diagnosis: same Procedure & Clinicians Study performed: Esophagoduodenoscopy and colonoscopy Same procedure as scheduled: Yes Indications: Anemia Surgeon: Humberto Velez Procedure Notes Procedure in detail: The history and physical was performed/updated and the patient is ASA class is 2. The procedure was discussed in detail with the patient. Potential risks complications including infection, bleeding, missed diagnosis, perforation, need for surgery, and were explained. Their questions were answered and informed consent was obtained. Patient placed in left lateral decubitus position. Time out was performed. Sedation was administered by anesthesia. A bite block was placed. the scope was inserted into the mouth and advanced through the esophagus and into the stomach. The pylorus was intubated. Duodenum was notable for mild duodenitis no active hemorrhage or ulcer. Biopsy of the duodenitis was performed with forceps. The scope was retroflexed within the stomach and there was a small hiatal hernia. No ulcers, or gastritis. The scope was withdrawn into the esophagus the Z line was seen at 35 cm from the incisions. There was no Flor's esophagitis, esophageal masses or strictures. Stomach was desufflated and scope removed. Patient tolerated procedure well. Examination began with a thorough inspection of the perianal area there was no evidence of fissures, fistulae, external hemorrhoids or cutaneous malignancy. The colonoscopy scope was then placed into the anal canal and was advanced to the cecum, which was identified by the ileocecal valve, the appendiceal orifice and the confluence of the taenia. The scope was then slowly withdrawn examining colon thoroughly in all directions, irrigating it of any residual stool. FINDINGS 1. Duodenitis 2. Sigmoid polyp 3 mm removed with biopsy forceps 3. Internal hemorrhoids The patient tolerated the procedure well. They will be discharged once criteria are met. The prep was of good/excellent quality. The withdrawl time was 8minutes. Specimen(s): other (Duodenum, sigmoid polyp) Impression: Duodenitis, colonic polyp Post-procedure Recommendations: High fiber diet Plan for aftercare: Follow-up is dependent on pathology findings. Start famotidine 20 mg daily Disposition: same day surgery
[2022-06-15 15:39] VITALS: BP 98/68; PULSE 74; RESP 21; TEMP 36.4; O2SAT 99
[2022-06-15 15:45] VITALS: BP 117/87; PULSE 72; RESP 17; O2SAT 96
[2022-06-15 15:47] VITALS: BP 126/84; PULSE 69; RESP 18; TEMP 36.4; O2SAT 95
== END 2022-06-15 16:43 | disposition home or self-care (01) ==
PROVIDERS: PCP Internal Medicine; Referring Provider Surgery; Visit Provider Surgery
PROC: 0DJ08ZZ Inspection of Upper Intestinal Tract, Via Natural or Artificial Opening Endoscopic (ICD-10-PCS; CPT 43235; principal; 2022-06-15 15:00)
PROC: 0DJD8ZZ Inspection of Lower Intestinal Tract, Via Natural or Artificial Opening Endoscopic (ICD-10-PCS; CPT 45378; 2022-06-15 15:00)
DX: D50.9 Iron deficiency anemia, unspecified (principal); K29.80 Duodenitis without bleeding; K44.9 Diaphragmatic hernia without obstruction or gangrene; K64.8 Other hemorrhoids; K63.5 Polyp of colon
CPT/HCPCS: 43239; 45380; J2704

== ENCOUNTER → 2022-07-09 13:56 | Outpatient (CLI) | payer MEDICARE, MEDICAID, SELFPAY ==
[2022-07-09 15:08] LABS: Hemoglobin A1C% w Est Avg Glu 5.8 % (4.0-6.0)
== END ==
PROVIDERS: PCP Internal Medicine; Referring Provider Internal Medicine; Visit Provider Internal Medicine
DX: E11.9 Type 2 diabetes mellitus without complications (principal)
CPT/HCPCS: 36415; 83036

== ENCOUNTER → 2022-09-08 09:50 | Outpatient (CLI) | payer MEDICARE, MEDICAID, SELFPAY ==
[2022-09-08 11:26] LABS: BUN Creatinine Ratio 18.2 (6-22); Blood Urea Nitrogen 14 mg/dL (9-20); Calcium 8.8 mg/dL (8.4-10.2); Carbon Dioxide 25 mmol/L (22-32); Chloride 104 mmol/L (98-107); Estimated Glomerular Filt Rate > 60 mL/min (>60); Glucose 143 mg/dL (80-110); HEMOLYSIS < 15 (0-50); Potassium 3.6 mmol/L (3.4-5.1); Sodium 139 mmol/L (137-145)
[2022-09-08 11:57] LABS: Prostate Specific Antigen 4.64 ng/mL (0.10-4.00)
[2022-09-09 09:48] LABS: Labcorp Hemoglobin (Hb) A1c 5.7 % (4.8-5.6)
== END ==
PROVIDERS: PCP Internal Medicine; Referring Provider Internal Medicine; Visit Provider Internal Medicine
DX: R97.20 Elevated prostate specific antigen [PSA]; R73.02 Impaired glucose tolerance (oral)
CPT/HCPCS: 36415; 80048; 83036; 84153

== ENCOUNTER → 2023-11-22 10:47 | Outpatient (CLI) | payer MEDICARE, SELFPAY ==
[2023-11-22 12:16] LABS: Add Manual Diff / Slide Review NO; Basophils Absolute Auto 100 /uL (0-100); Basophils Percent Auto 1.3 % (0-2); Eosinophils Absolute Auto 100 /uL (0-450); Eosinophils Percent Auto 1.7 % (2-4); Hematocrit 30.4 % (41-53); Hemoglobin 10.2 g/dL (13.5-17.5); Lymphocytes Absolute Auto 900 /uL (1100-4500); Lymphocytes Percent Auto 21.1 % (25-40); Mean Corpuscular HGB Conc 33.5 % (30-36); Mean Corpuscular Volume 92.7 fL (80-100); Monocytes Absolute Auto 300 /uL (0-900); Monocytes Percent Auto 6.8 % (3-14); Neutrophils Absolute Auto 2800 /uL (1500-7000); Neutrophils Percent Auto 69.1 % (50-75); Platelet Count 430 X10^3/uL (150-400); Red Blood Cell Count 3.28 X10^6/uL (4.5-5.9); Red Cell Distribution Width 14.5 % (11.6-14.8); White Blood Cell Count 4.1 X10^3/uL (4.5-11.0)
[2023-11-22 12:38] LABS: HEMOLYSIS < 15 (0-50)
[2023-11-22 12:44] LABS: HEMOLYSIS < 15 (0-50); Iron 25 ug/dL (49-181)
[2023-11-22 12:50] LABS: Alanine Aminotransferase 23 IU/L (<50); Albumin Globulin Ratio 1.5 (1.0-2.8); Alkaline Phosphatase 103 U/L (38-126); Aspartate Aminotransferase 25 IU/L (17-59); BUN Creatinine Ratio 21.9 (6-22); Bilirubin Total 0.3 mg/dL (0.2-1.3); Blood Urea Nitrogen 23 mg/dL (9-20); Carbon Dioxide 27 mmol/L (22-32); Chloride 105 mmol/L (98-107); Cholesterol 234 mg/dL (140-199); Estimated Glomerular Filt Rate > 60 mL/min (>60); Globulin 2.7 g/dL (1.7-4.1); Glucose 155 mg/dL (80-110); HDL Cholesterol 67 mg/dL (40-60); Potassium 4.3 mmol/L (3.4-5.1); Sodium 138 mmol/L (137-145); Total Protein 6.7 g/dL (6.3-8.2); Triglycerides 423 mg/dL (35-150)
[2023-11-22 12:55] LABS: Percent Iron Saturation 7 % (20-50); Total Iron Binding Capacity 360 ug/dL (261-462); Transferrin 309 mg/dL (206-381)
[2023-11-22 13:01] LABS: Free T4, Direct Thyroxine 0.83 ng/dL (0.78-2.19)
[2023-11-22 13:15] LABS: Thyroid Stimulating Hormone 3.18 uIU/mL (0.47-4.68)
[2023-11-23 14:31] LABS: Prostate Specific Antigen 6.11 ng/mL (0.10-4.00)
== END ==
PROVIDERS: PCP Internal Medicine; Referring Provider Internal Medicine; Visit Provider Internal Medicine
DX: I10 Essential (primary) hypertension (principal); R73.02 Impaired glucose tolerance (oral); R97.20 Elevated prostate specific antigen [PSA]; D64.9 Anemia, unspecified; D50.9 Iron deficiency anemia, unspecified
CPT/HCPCS: 36415; 80053; 80061; 83036; 83540; 83550; 84153; 84439; 84443; 85025

== ENCOUNTER → 2024-08-15 14:33 | Outpatient (CLI) | payer MEDICARE, SELFPAY | PROVIDERS: PCP Internal Medicine; Referring Provider Internal Medicine; Visit Provider Internal Medicine | DX: J44.9 Chronic obstructive pulmonary disease, unspecified (principal); Z87.891 Personal history of nicotine dependence; R94.2 Abnormal results of pulmonary function studies; J45.21 Mild intermittent asthma with (acute) exacerbation | CPT/HCPCS: 94060; 94726; 94729 ==

== ENCOUNTER → 2025-01-22 11:03 | Outpatient (CLI) | payer MEDICARE, MEDICAID, SELFPAY ==
[2025-01-22 12:06] LABS: Add Manual Diff / Slide Review NO; Hematocrit 47.2 % (41-53); Hemoglobin 16.1 g/dL (13.5-17.5); Lymphocytes Absolute Auto 1300 /uL (1100-4500); Mean Corpuscular HGB Conc 34.1 % (30-36); Mean Corpuscular Hemoglobin 29.8 PG (26-34); Mean Corpuscular Volume 87.3 fL (80-100); Platelet Count 292 X10^3/uL (150-400)
[2025-01-22 12:34] LABS: Blood Urea Nitrogen 23 mg/dL (9-20); Calcium 9.5 mg/dL (8.4-10.2); Carbon Dioxide 29 mmol/L (22-32); Chloride 98 mmol/L (98-107); Estimated Glomerular Filt Rate > 60 mL/min (>60); Glucose 134 mg/dL (70-99); HEMOLYSIS < 15 (0-50); Potassium 3.5 mmol/L (3.4-5.1); Sodium 137 mmol/L (137-145)
== END ==
PROVIDERS: PCP Internal Medicine; Referring Provider Orthopaedic Surgery; Visit Provider Orthopaedic Surgery
DX: Z01.818 Encounter for other preprocedural examination (principal); M70.21 Olecranon bursitis, right elbow; Z68.27 Body mass index [BMI] 27.0-27.9, adult
CPT/HCPCS: 36415; 80048; 85025; 99214

== ENCOUNTER 2025-02-11 06:11 | Day surgery (SDC) | payer MEDICARE, SELFPAY ==
[2025-02-04 12:43] VITALS: BMI 27.0
[2025-02-11] VITALS (7 sets, daily range): BP systolic 155–172; BP diastolic 75–97; PULSE 65–85; RESP 16–18; TEMP 36.3–36.8; O2SAT 95–99; BMI 26.6
--- NOTE | 2025-02-11 07:06 | PM.PREOP ---
Pre-operative Note Interval Note History & Physical reviewed/Exam performed by Physician: Yes Changes to H&P: No
[2025-02-11] MEDS: ACETAMINOPHEN 325 MG TABLET 975 MG PO (07:11)
[2025-02-11] MEDS: LACTATED RINGERS 1,000 ML 42 ML IV (07:11)
--- NOTE | 2025-02-11 08:16 | SUR.OPER ---
Lateral on a young bag, head on pillow, gel axillary roll in place, bottom leg bent with gel pad under knee to foot, upper leg straight and supported with pillows. Upper arm supported by foam guadalupe secured to bed for positioning. Safety belt at hip, tape over blanket lower legs and upper body.
--- NOTE | 2025-02-11 09:56 | P.OP_ITS ---
Operative Date/Time/Diagnoses Date of procedure: 02/11/25 Time of procedure: 07:45 Pre-op diagnosis: RIGHT Elbow Olecranon Bursitis and Symptomatic Enthesophyte Post-op diagnosis: same Procedure & Clinicians Procedure: LET Elbow olecranon bursectomy and enthesophyte excision Same procedure(s) as scheduled: Yes Indications: Symptomatic olecranon bursitis Surgeon: Wayne Hernandez Assisted?: Yes Trucking Supervisor: Diana Persaud Anesthesia Type: General Operative Notes Findings: Inflamed olecranon bursa and small enthesophyte Specimen(s): none sent Applied: none Estimated Blood Loss (mL): 10 Blood products transfused: none Tourniquet time (min): 28 Procedure in detail: Laterality: Right Preoperative diagnosis: Symptomatic right elbow olecranon bursitis Procedure performed: Right elbow olecranon bursectomy and enthesophyte excision Postoperative diagnosis: Same Primary Surgeon: Wayne Hernandez MD Secondary Surgeon: REJI Gonzales Physician Trucking Supervisor was used throughout the entirety of the case. ?This operation could not have been safely performed (without compromising the technical results or length of the procedure) without the assistance of a skilled assistant customer service manager. A assistant customer service manager was medically necessary for room set up, patient positioning, draping, retraction, visualization, reduction, fixation and closure. ?They were essential ?for the success of the case. Anesthesia: General EBL: 10 ml Tourniquet: 28 minutes @ 250 mmHg Implants: None Indication For Surgery: The patient had symptomatic olecranon bursitis The risks, benefits, and alternatives were discussed. Risks include pain, bleeding, infection, damage to nearby structures and cartilage, lack of symptom relief, need for further surgery, DVT, PE, stroke, and . Written consent was o btained. Operative Findings: Inflamed olecranon bursitis, small olecranon enthesophyte Procedure in Detail: The patient was met in the pre-operative hold area. Consent was verified and operative extremity was signed. The patient then met with anesthesia and was brought back to the operating room. The patient was placed supine on the operating table. A general anesthetic was administered. They were then placed in the lateral position. A axillary roll was placed and all bony prominences were padded. A young bag was inflated to hold the lateral position. The operative arm was then positioned over a paint roller positioner. The operative arm was prepped and draped in the usual sterile fashion. A timeout was performed per protocol. All were in agreement and we proceeded. The esmarch exsanguinated the limb and the sterile tourniquet was elevated. A dorsal longitudinal skin incision curving laterally was made. This incision remained superficial so that we could easily dissect out the bursa from the skin. We started proximally near the triceps tendon. This allowed us to find our plane between the musculature and bone and the bursa itself deep. We initially cleared off laterally and then being careful we transitioned medially ensuring that we are keeping the ulnar nerve protected. The bursa came out in mass and then we reexamined to make sure that there was no additional bursa remaining. A longitudinal incision was made through the triceps tendon insertion. We then located the small enthesophyte using a mini fluoro. We then were able to place a small osteotome over the bony fragment and this came off easily. The bone was then examined again with fluoroscopy which demonstrate a small prominence. This was then rasped down to being flush with the rest of the olecranon. Final fluoroscopy was taken to ensure that we had removed the enthesophyte. Irrigation was performed. The wound was closed with vicryl in the fat and dermal layers, with nylon in the skin. Local anesthetic was injected into the surgical site. A sterile dressing was applied. The patient was awakened and transitioned to the recovery room without issue. Postoperative Plan: Same day surgery discharge Soft dressing for the next 4 days Non weight bearing Sutures out at 2 weeks Follow up with Orthopedics in 2 weeks Wayne Hernandez MD Complications: none Post-operative Condition: stable Disposition: PACU
== END 2025-02-11 10:10 | disposition home or self-care (01) ==
PROVIDERS: PCP Internal Medicine; Referring Provider Orthopaedic Surgery; Visit Provider Orthopaedic Surgery
PROC: (CPT 24147; principal; 2025-02-11 07:45)
DX: M70.21 Olecranon bursitis, right elbow (principal); M25.721 Osteophyte, right elbow; I10 Essential (primary) hypertension; J44.9 Chronic obstructive pulmonary disease, unspecified; D64.9 Anemia, unspecified; F31.9 Bipolar disorder, unspecified
CPT/HCPCS: 24147; 24105; J0689; J1100; J2405; J2704; J3010